=== PATIENT | female | born 1970 | race Caucasian/White ===

== ENCOUNTER 2016-05-17 14:49 | Outpatient (RCR) | payer OTHER | END 2016-08-15 | LOC: WSOH | DX: S60.211A Contusion of right wrist, initial encounter (principal); Y99.0 Civilian activity done for income or pay | CPT/HCPCS: 24091; A6549 ==

== ENCOUNTER → 2016-06-16 | Outpatient (REF) | LOC: ZLAB.WCH 11:07 | DX: Z01.89 Encounter for other specified special examinations (principal) ==

== ENCOUNTER → 2016-11-26 | Outpatient (REF) | LOC: ZLAB.WCH 18:12 | DX: Z01.89 Encounter for other specified special examinations (principal) ==

== ENCOUNTER → 2017-12-06 | Outpatient (REF) | LOC: ZLAB.WCH 17:50 | DX: Z01.89 Encounter for other specified special examinations (principal) ==

== ENCOUNTER → 2018-12-16 | Outpatient (CLI) | payer BC | LOC: ZCOL.LAB 10:29 | DX: H92.11 Otorrhea, right ear (principal) ==